=== PATIENT | female | born 1985 | race Caucasian/White ===

== ENCOUNTER 2017-03-02 14:22 | Emergency (ER) | payer SELFPAY ==
[~2017-03-02] VITALS: Ht 182.9 cm; Wt 96.0 kg
[2017-03-02 14:46] VITALS: BP 125/82
[2017-03-02] MEDS ORDERED: ALBU18HF2 IH (14:48)
== END 2017-03-02 16:38 | disposition home or self-care (01) ==
LOC: ER 16:33
DX: Z76.0 Encounter for issue of repeat prescription (principal); J45.909 Unspecified asthma, uncomplicated
CPT/HCPCS: 99283